=== PATIENT | female | born 1995 | race Caucasian/White ===

== ENCOUNTER 2017-10-03 10:33 | Emergency (ER) | END 2017-10-03 13:57 | disposition home or self-care (01) ==

== ENCOUNTER 2017-10-08 20:33 | Emergency (ER) | END 2017-10-08 21:30 | disposition home or self-care (01) ==

== ENCOUNTER 2018-08-06 09:18 | Emergency (ER) | payer SELFPAY ==
[~2018-08-06] VITALS: Wt 180.0 kg
[~2018-08-06 09:18] MED LIST: AMOX500C2 PO; Hydrocodone Bit/Acetaminophen PO; IBUP-1542 PO; IBUP-1545 PO; PRED20TA PO
[2018-08-06 09:24] VITALS: BP 145/79; PULSE 72; RESP 18
[2018-08-06] MEDS ORDERED: PRED20TA PO (09:59)
[2018-08-06] MEDS ORDERED: FEXO180T61 PO (09:59)
[2018-08-06] MEDS ORDERED: DIPHENHYDRAMINE 50 MG INJ IM ONE (10:00)
[2018-08-06] MEDS ORDERED: predniSONE 20 MG TAB PO ONE (10:00)
--- NOTE | 2018-08-06 10:02 | ERD ---
ER Documentation Chief Complaint Chief Complaint RASH.ITCHING HPI 23-year-old female presents with an itchy rash since last night on the face, trunk and extremities. She has had this once before. She denies any new known foods or potential allergens. She did take a new weight loss supplement recently. She denies . ROS All systems reviewed and are negative except as per history of present illness. Medications Home Meds Active Scripts Prednisone* (Prednisone*) 20 Mg Tab, 60 MG PO DAILY for 3 Days, TAB Start August 07, 2018 Prov:YASH ROQUE MD 08/06/18 Fexofenadine Hcl* (Petra*) 180 Mg Tablet, 180 MG PO DAILY, #15 TAB Prov:YASH ROQUE MD 08/06/18 Prednisone* (Prednisone*) 20 Mg Tab, 60 MG PO DAILY for 5 Days, TAB Prov:LORENA ECHAVARRIA PA-C 10/03/17 Ibuprofen* (Motrin*) 600 Mg Tab, 600 MG PO Q6, #30 TAB Prov:LORENA ECHAVARRIA PA-C 10/03/17 Amoxicillin* (Amoxicillin*) 500 Mg Cap, 500 MG PO BID for 10 Days, CAP Prov:LORENA ECHAVARRIA PA-C 10/03/17 Ibuprofen* (Ibuprofen*) 800 Mg Tab, 800 MG PO Q6H PRN for PAIN, #20 TAB Prov:ARLEY SAUNDERS MD 12/01/14 [Hydrocodone Bit/Acetaminophen] 1 TAB TAB No Conflict Check, 2 TAB PO Q4H PRN for MOD TO SEVERE PAIN (SCALE 6-10, TAB Prov:ARLEY SAUNDERS MD 12/01/14 [Hydrocodone Bit/Acetaminophen] 1 TAB TAB No Conflict Check, 1 TAB PO Q4H PRN for MILD PAIN (PAIN SCALE 1-5), TAB Prov:ARLEY SAUNDERS MD 12/01/14 Allergies Allergies: Coded Allergies: No Known Allergy (Unverified , 10/03/17) PMhx/Soc History of Surgery: Yes (Gallbladder) Anesthesia Reaction: No Hx Neurological Disorder: No Hx Respiratory Disorders: No Hx Cardiac Disorders: No Hx Psychiatric Problems: No Hx Miscellaneous Medical Probl: No Hx Alcohol Use: No Hx Substance Use: No Hx Tobacco Use: No FmHx Family History: No diabetes, No coronary disease, No other Physical Exam Vitals Vital Signs Date Temp Pulse Resp B/P (MAP) Pulse Ox O2 O2 Flow FiO2 Time Delivery Rate 08/06/18 98.1 72 18 145/79 99 09:24 (101) Physical Exam Const: No acute distress Head: Atraumatic Eyes: Normal Conjunctiva ENT: Normal External Ears, Nose and Mouth. Neck: Full range of motion. No meningismus. Resp: Clear to auscultation bilaterally Cardio: Regular rate and rhythm, no murmurs Abd: Soft, non tender, non distended. Normal bowel sounds Skin: No petechiae or purpura. Scattered wheals on face, trunk and extremities. No induration, vesicles, streaking. Back: No midline or flank tenderness Ext: No cyanosis, or edema Neur: Awake and alert Psych: Normal Mood and Affect Results 24 hrs Current Medications Medications Dose Sig/Kendell Start Time Status Last (Trade) Ordered Route PRN Stop Time Admin Dose Reason Admin 50 mg ONCE ONCE 08/06/18 08/06/18 Diphenhydrami IM 10:00 09:42 ne HCl 08/06/18 10:01 (Benadryl) Prednisone 60 mg ONCE ONCE 08/06/18 08/06/18 (Prednisone) PO 10:00 09:42 08/06/18 10:01 Procedures/MDM Patient presents with signs of acute urticaria without signs of anaphylaxis, sepsis, life-threatening rashes, purpura, rest or distress. He was given Benadryl 50 mg IM, prednisone 60 mg by mouth. She will be treated with Petra, prednisone at home instructions for Benadryl for breakthrough rash. She should return sooner for fevers, shortness of breath, new or worsening symptoms. She will be discharged home to observe household for possible causes of allergies and discontinue any new supplements. The patient was stable with no new complaints during the ER course. Clinically, there is no current evidence to suggest meningitis, sepsis, acute abdomen, pneumonia, stroke, acute coronary syndrome, pulmonary embolism, aortic dissection or any other emergent condition appearing to require further evaluation or hospitalization. Patient counseled regarding my diagnostic impression and care plan. Prior to discharge all questions answered. Pt agrees with treatment plan and understands strict return precautions. Pt is instructed to follow up with primary care provider within 24- 48 hours. Precautionary instructions provided including instructions to return to the ER if not improving or for any worsening or changing symptoms or concerns. Departure Diagnosis: Primary Impression: Rash Condition: Stable Patient Instructions: Hives Additional Instructions: Recheck for new or worsening symptoms. Observe household for possible causes of allergy. Recheck for shortness of breath, fevers, new worsening symptoms otherwise. Recommend discontinue any supplements to identify allergy. Okay to take Benadryl at home as well for a rash despite treatment. YASH ROQUE MD Aug 06, 2018 10:02
== END 2018-08-06 10:09 | disposition home or self-care (01) ==
LOC: FTE 09:18
DX: R21 Rash and other nonspecific skin eruption (principal)
CPT/HCPCS: 96372; 99284; J1200; J7512

== ENCOUNTER 2018-08-08 08:36 | Emergency (ER) | payer MEDICAID ==
[~2018-08-08] VITALS: Ht 177.8 cm; Wt 148.1 kg
[~2018-08-08 08:36] MED LIST changes: +FEXO180T61 PO
[2018-08-08 08:44] VITALS: BP 172/74; PULSE 98; RESP 20; Ht 177.8 cm; Wt 148.1 kg
[2018-08-08] MEDS ORDERED: FAMO-96 PO (09:23)
[2018-08-08] MEDS ORDERED: HYDR-3029 PO (09:23)
[2018-08-08] MEDS ORDERED: BEN25 PO (09:23)
[2018-08-08] MEDS ORDERED: DIPHENHYDRAMINE 50 MG CAP PO ONE (09:30)
[2018-08-08] MEDS ORDERED: FAMOTIDINE 20 MG TAB PO ONE (09:30)
--- NOTE | 2018-08-08 10:02 | ERD ---
ER Documentation Chief Complaint Chief Complaint Complains of generalized rash x 3 days HPI 23-year-old female presenting with generalized rash times 3 days. She had hives and was seen here 2 days ago. She was discharged with Petra and prednisone and states that her rash is continued. Denies any facial swelling or tongue swelling. Denies other medical problems. NKDA. Surgical history denies. Social history denies. ROS All systems reviewed and are negative except as per history of present illness. Medications Home Meds Active Scripts Hydroxyzine Hcl* (Hydroxyzine Hcl*) 10 Mg Tablet, 10 MG PO Q6H PRN for ITCHING, #30 TAB Prov:GONZALO CARDOZA PA-C 08/08/18 Famotidine* (Pepcid*) 20 Mg Tablet, 20 MG PO BID for 4 Days, TAB Prov:GONZALO CARDOZA PA-C 08/08/18 Diphenhydramine Hcl* (Benadryl*) 25 Mg Cap, 25 MG PO Q6, #30 CAP Prov:GONZALO CARDOZA PA-C 08/08/18 Prednisone* (Prednisone*) 20 Mg Tab, 60 MG PO DAILY for 3 Days, TAB Start August 07, 2018 Prov:YASH ROQUE MD 08/06/18 Fexofenadine Hcl* (Petra*) 180 Mg Tablet, 180 MG PO DAILY, #15 TAB Prov:YASH ROQUE MD 08/06/18 Prednisone* (Prednisone*) 20 Mg Tab, 60 MG PO DAILY for 5 Days, TAB Prov:LORENA ECHAVARRIA PA-C 10/03/17 Ibuprofen* (Motrin*) 600 Mg Tab, 600 MG PO Q6, #30 TAB Prov:LORENA ECHAVARRIA PA-C 10/03/17 Amoxicillin* (Amoxicillin*) 500 Mg Cap, 500 MG PO BID for 10 Days, CAP Prov:LORENA ECHAVARRIA PA-C 10/03/17 Ibuprofen* (Ibuprofen*) 800 Mg Tab, 800 MG PO Q6H PRN for PAIN, #20 TAB Prov:ARLEY SAUNDERS MD 12/01/14 [Hydrocodone Bit/Acetaminophen] 1 TAB TAB No Conflict Check, 2 TAB PO Q4H PRN for MOD TO SEVERE PAIN (SCALE 6-10, TAB Prov:ARLEY SAUNDERS MD 12/01/14 [Hydrocodone Bit/Acetaminophen] 1 TAB TAB No Conflict Check, 1 TAB PO Q4H PRN for MILD PAIN (PAIN SCALE 1-5), TAB Prov:ARLEY SAUNDERS MD 12/01/14 Allergies Allergies: Coded Allergies: No Known Allergy (Unverified , 10/03/17) PMhx/Soc History of Surgery: Yes (Gallbladder) Anesthesia Reaction: No Hx Neurological Disorder: No Hx Respiratory Disorders: No Hx Cardiac Disorders: No Hx Psychiatric Problems: No Hx Miscellaneous Medical Probl: No Hx Alcohol Use: No Hx Substance Use: No Hx Tobacco Use: No FmHx Family History: No diabetes, No coronary disease, No other Physical Exam Vitals Vital Signs Date Temp Pulse Resp B/P (MAP) Pulse Ox O2 O2 Flow FiO2 Time Delivery Rate 08/08/18 98.5 98 20 172/74 99 08:44 (106) Physical Exam GENERAL: The patient is well-appearing, well-nourished, in no acute distress HEENT: Atraumatic. Conjunctivae are pink. Pupils equal, round, and reactive to light. There is no scleral icterus. Tympanic membranes clear bilaterally. Oropharynx clear. CHEST: Clear to auscultation bilaterally. There are no rales, wheezes or rhonchi. HEART: Regular rate and rhythm. No murmurs, clicks, rubs or gallops. SKIN: Urticaria noted to arms and abdomen. No fluctuance no pustules and no excoriations. Results 24 hrs Current Medications Medications Dose Sig/Kendell Start Time Status Last (Trade) Ordered Route PRN Stop Time Admin Dose Reason Admin 50 mg ONCE ONCE 08/08/18 DC 08/08/18 Diphenhydrami PO 09:30 09:23 ne HCl 08/08/18 09:31 (Benadryl) Famotidine 20 mg ONCE ONCE 08/08/18 DC 08/08/18 (Pepcid) PO 09:30 09:23 08/08/18 09:31 Procedures/MDM ER course: Pepcid and Benadryl given ED. MDM: 23-year-old female presenting with rash. Patient rash appears to be urticarial in nature. I have low suspicion for anaphylaxis. I have low suspicion for bacterial or parasitic infection. I have low suspicion for life- threatening rash. She is discharged with supportive medications and told to follow-up with primary care within 1-2 days for close evaluation. Patient is told if symptoms change or worsen to return immediately to the ER. All questions answered discharge Departure Diagnosis: Primary Impression: Urticaria Condition: Stable Patient Instructions: Hives Referrals: [facility] YOU HAVE RECEIVED A MEDICAL SCREENING EXAM AND THE RESULTS INDICATE THAT YOU DO NOT HAVE A CONDITION THAT REQUIRES URGENT TREATMENT IN THE EMERGENCY DEPARTMENT. FURTHER EVALUATION AND TREATMENT OF YOUR CONDITION CAN WAIT UNTIL YOU ARE SEEN IN YOUR DOCTORS OFFICE WITHIN THE NEXT 1-2 DAYS. IT IS YOUR RESPONSIBILITY TO MAKE AN APPOINTMENT FOR FOLOW-UP CARE. IF YOU HAVE A PRIMARY DOCTOR --you should call your primary doctor and schedule an appointment IF YOU DO NOT HAVE A PRIMARY DOCTOR YOU CAN CALL OUR PHYSICIAN REFERRAL HOTLINE AT IF YOU CAN NOT AFFORD TO SEE A PHYSICIAN YOU CAN CHOSE FROM THE FOLLOWING [facility] [address] [place] [address] [facility] [address] [facility] [address] [facility] [address] [facility]. [facility]. [address] Additional Instructions: FOLLOW UP WITH YOUR PRIMARY CARE PHYSICIAN TOMORROW.Return to this facility if you are not improving as expected. GONZALO CARDOZA PA-C Aug 08, 2018 10:02
== END 2018-08-08 09:35 | disposition home or self-care (01) ==
LOC: FTE 08:36
DX: L50.9 Urticaria, unspecified (principal)
CPT/HCPCS: Z7502; Z7610; 99283

== ENCOUNTER 2018-11-15 07:02 | Emergency (ER) | payer SELFPAY ==
[~2018-11-15] VITALS: Ht 167.6 cm; Wt 145.0 kg
[~2018-11-15 07:02] MED LIST changes: +BEN25 PO; +FAMO-96 PO; +HYDR-3029 PO
[2018-11-15 07:09] VITALS: BP 141/75; PULSE 107; RESP 24; Ht 167.6 cm; Wt 145.0 kg
[2018-11-15] MEDS ORDERED: BEN25 PO (07:38)
[2018-11-15] MEDS ORDERED: PRED20TA PO (07:38)
[2018-11-15] MEDS ORDERED: DIPHENHYDRAMINE 25 MG CAP PO ONE (08:00)
[2018-11-15] MEDS ORDERED: DEXAMETHASONE 10 MG/ML 1 ML INJ IM ONE (08:00)
--- NOTE | 2018-11-15 08:14 | ERD ---
ER Documentation Chief Complaint Chief Complaint sob; sore throat; hives HPI 23-year-old female presenting with shortness of breath sore throat and hives. She states that started last night she felt like she is having troubles breathing. Her body is covered in hives. She is never had this before. She has not taken medications for her symptoms. Denies knowing she has a fever. Denies medical problems. NKDA. Surgical history is cholecystectomy. Social history denies ROS All systems reviewed and are negative except as per history of present illness. Medications Home Meds Active Scripts Prednisone* (Prednisone*) 20 Mg Tab, 40 MG PO DAILY for 4 Days, TAB Prov:GONZALO CARDOZA PA-C 11/15/18 Diphenhydramine Hcl* (Benadryl*) 25 Mg Cap, 25 MG PO Q6, #30 CAP Prov:GONZALO CARDOZA PA-C 11/15/18 Hydroxyzine Hcl* (Hydroxyzine Hcl*) 10 Mg Tablet, 10 MG PO Q6H PRN for ITCHING, #30 TAB Prov:GONZALO CARDOZA PA-C 08/08/18 Famotidine* (Pepcid*) 20 Mg Tablet, 20 MG PO BID for 4 Days, TAB Prov:GONZALO CARDOZA PA-C 08/08/18 Diphenhydramine Hcl* (Benadryl*) 25 Mg Cap, 25 MG PO Q6, #30 CAP Prov:GONZALO CARDOZA PA-C 08/08/18 Prednisone* (Prednisone*) 20 Mg Tab, 60 MG PO DAILY for 3 Days, TAB Start August 07, 2018 Prov:YASH ROQUE MD 08/06/18 Fexofenadine Hcl* (Petra*) 180 Mg Tablet, 180 MG PO DAILY, #15 TAB Prov:YASH ROQUE MD 08/06/18 Prednisone* (Prednisone*) 20 Mg Tab, 60 MG PO DAILY for 5 Days, TAB Prov:LORENA ECHAVARRIA PA-C 10/03/17 Ibuprofen* (Motrin*) 600 Mg Tab, 600 MG PO Q6, #30 TAB Prov:LORENA ECHAVARRIA PA-C 10/03/17 Amoxicillin* (Amoxicillin*) 500 Mg Cap, 500 MG PO BID for 10 Days, CAP Prov:ECHAVARRIALORENA Evelyn BEARD 10/03/17 Ibuprofen* (Ibuprofen*) 800 Mg Tab, 800 MG PO Q6H PRN for PAIN, #20 TAB Prov:ARLEY SAUNDERS MD 12/01/14 [Hydrocodone Bit/Acetaminophen] 1 TAB TAB No Conflict Check, 2 TAB PO Q4H PRN for MOD TO SEVERE PAIN (SCALE 6-10, TAB Prov:ARLEY SAUNDERS MD 12/01/14 [Hydrocodone Bit/Acetaminophen] 1 TAB TAB No Conflict Check, 1 TAB PO Q4H PRN for MILD PAIN (PAIN SCALE 1-5), TAB Prov:ARLEY SAUNDERS MD 12/01/14 Allergies Allergies: Coded Allergies: No Known Allergy (Unverified , 10/03/17) PMhx/Soc Medical and Surgical Hx: pt denies Medical Hx History of Surgery: Yes (Gallbladder) Anesthesia Reaction: No Hx Neurological Disorder: No Hx Respiratory Disorders: No Hx Cardiac Disorders: No Hx Psychiatric Problems: No Hx Miscellaneous Medical Probl: No Hx Alcohol Use: Yes (occassional) Hx Substance Use: No Hx Tobacco Use: No Smoking Status: Never smoker FmHx Family History: No diabetes, No coronary disease, No other Physical Exam Vitals Vital Signs Date Temp Pulse Resp B/P (MAP) Pulse Ox O2 O2 Flow FiO2 Time Delivery Rate 11/15/18 98.5 07:49 11/15/18 100.5 107 24 141/75 96 07:09 (97) Physical Exam Const: No acute distress Head: Atraumatic Eyes: Normal Conjunctiva ENT: Normal External Ears, Nose and Mouth. Neck: Full range of motion. No meningismus. Resp: Clear to auscultation bilaterally Cardio: Regular rate and rhythm, no murmurs Abd: Soft, non tender, non distended. Normal bowel sounds Skin: Diffuse urticarial rash noted all over body. Results 24 hrs Current Medications Medications Dose Sig/Kendell Start Time Status Last (Trade) Ordered Route PRN Stop Time Admin Dose Reason Admin 10 mg ONCE ONCE 11/15/18 DC 11/15/18 Dexamethasone IM 08:00 11/15/18 07:58 (Decadron) 08:01 25 mg ONCE ONCE 11/15/18 DC 11/15/18 Diphenhydrami PO 08:00 11/15/18 07:57 ne HCl 08:01 (Benadryl) Procedures/MDM ER course: Decadron and Benadryl given ED. Temperature rechecked and was 98.4. Correction made in chart. MDM: 23-year-old female presenting with hives. I have low suspicion for anaphylaxis as patient's oxygen saturation is stable and patient is nontoxic appearing. I have low suspicion for infectious process. Patient is discharged with strict ER precautions and told to follow-up with primary care within 1 to 2 days for close evaluation. Patient is told symptoms change or worsen to return immediately to the ER. All questions answered at discharge Departure Diagnosis: Primary Impression: Hives Condition: Stable Patient Instructions: Hives Referrals: [facility] YOU HAVE RECEIVED A MEDICAL SCREENING EXAM AND THE RESULTS INDICATE THAT YOU DO NOT HAVE A CONDITION THAT REQUIRES URGENT TREATMENT IN THE EMERGENCY DEPARTMENT. FURTHER EVALUATION AND TREATMENT OF YOUR CONDITION CAN WAIT UNTIL YOU ARE SEEN IN YOUR DOCTORS OFFICE WITHIN THE NEXT 1-2 DAYS. IT IS YOUR RESPONSIBILITY TO MAKE AN APPOINTMENT FOR FOLOW-UP CARE. IF YOU HAVE A PRIMARY DOCTOR --you should call your primary doctor and schedule an appointment IF YOU DO NOT HAVE A PRIMARY DOCTOR YOU CAN CALL OUR PHYSICIAN REFERRAL HOTLINE AT IF YOU CAN NOT AFFORD TO SEE A PHYSICIAN YOU CAN CHOSE FROM THE FOLLOWING REPLACED BY [facility] [address] [facility]. [facility] [address] [facility] [facility] [address] [facility] [facility] [address] [facility]. [facility] [address] [facility]. [facility]. [address] Additional Instructions: FOLLOW UP WITH YOUR PRIMARY CARE PHYSICIAN TOMORROW.Return to this facility if you are not improving as expected. GONZALO CARDOZA PA-C November 15, 2018 08:14
== END 2018-11-15 08:17 | disposition home or self-care (01) ==
LOC: FTE 07:02
DX: L50.9 Urticaria, unspecified (principal)
CPT/HCPCS: 96372; 99284; J1100